=== PATIENT | male | born 1960 | race Caucasian/White ===

== ENCOUNTER 2019-01-09 10:27 | Outpatient (CLI) | payer MEDICARE ==
--- NOTE | 2019-01-09 13:06 | RAD ---
CHEST TWO VIEW: 01/09/19 HISTORY: Unintentional weight loss. COMPARISON: None. FINDINGS: Lungs are mildly hyperinflated. There is some scarring in the lung apices. No consolidation, pneumoth orax or effusion. No acute osseous abnormality. IMPRESSION: Mild lung hyperinflation suggesting obstructive pulmonary disease. POS: [facility]
== END 2019-01-09 10:28 | disposition home or self-care (01) ==
LOC: BICRAD 10:27
PROVIDERS: ATTEND Internal Medicine Gastroenterology
DX: R63.4 Abnormal weight loss (principal); R10.13 Epigastric pain; K21.9 Gastro-esophageal reflux disease without esophagitis; K22.70 Barrett's esophagus without dysplasia; E04.1 Nontoxic single thyroid nodule; R91.8 Other nonspecific abnormal finding of lung field
CPT/HCPCS: 71046

== ENCOUNTER 2019-01-24 09:22 | Outpatient (CLI) | payer MEDICARE ==
[2019-01-24 10:13] LABS: Estimated GFR-MDRD - POC Greater than 90
--- NOTE | 2019-01-24 12:06 | CT ---
CT ABDOMEN AND PELVIS WITH IV CONTRAST: HISTORY: Generalized abdominal pain. Epigastric abdominal pain. History of prior hiatal hernia repair. 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 Weight loss. COMPARISON: None available. FINDINGS: Calcified granuloma is seen at the right lung base. The lung bases are otherwise clear. A subcentimeter too small to characterize hypodense lesion is seen in the lateral aspect right hepati c lobe. There is fullness in the region of the renal collecting systems bilaterally. Findings could be attri butable to parapelvic renal cysts, but delayed imaging was not obtained for further evaluation. Mini mal hydronephrosis could not be entirely excluded, but these findings are not seen in the superior po le of either kidney or mid portion of the right kidney. Subcentimeter too small to characterize hypo dense lesions are seen in the right kidney. The spleen, pancreas, bilateral adrenal glands, abdominal aorta, and partially distended urinary blad sara demonstrate a normal CT appearance. There is mild heterogeneity of the prostate gland with prostate calcifications visualized. Opacified small bowel is normal in caliber. There is a retrocecal appendix which is normal in caliber. No free fluid, fluid collection, or lymphadenopathy is seen in the abdomen or pelvis. There are postsurgical changes seen in the lower mediastinum and adjacent to the region of the GE pedro ction which may be related to patient's prior hiatal hernia repair. There is a very small hiatal her chhaya present on this exam. Degenerative changes are seen in the spine. IMPRESSION: 1. Suggested fullness in the renal collecting systems predominantly involving the inferior pole of e ach kidney. However, these findings could be attributable to parapelvic renal cysts, but delayed sreedhar ging was not obtained for further evaluation, and mild dilatation of the renal calyces cannot be enti rely excluded. 2. Subcentimeter too small to characterize hypodense lesions right kidney. 3. Single small subcentimeter too small to characterize hypodense lesion right hepatic lobe. 4. No acute findings are seen in the abdomen or pelvis. 5. Postsurgical changes lower mediastinum and at the level of the gastroesophageal junction with tc dence of small hiatal hernia. POS: [facility]
== END 2019-01-24 09:23 | disposition home or self-care (01) ==
LOC: BICCT 09:22
PROVIDERS: ATTEND Internal Medicine Gastroenterology
DX: K21.9 Gastro-esophageal reflux disease without esophagitis (principal); K22.70 Barrett's esophagus without dysplasia; R63.4 Abnormal weight loss; E04.1 Nontoxic single thyroid nodule; K76.9 Liver disease, unspecified; N28.9 Disorder of kidney and ureter, unspecified; Z98.890 Other specified postprocedural states
CPT/HCPCS: 74177; 82565